=== PATIENT | male | born 1955 | race African-American/Black ===

== ENCOUNTER 2017-12-14 04:25 | Inpatient (IN) | payer OTHER ==
[2017-12-14 05:09] LABS: ADD MAN DIFF? NO
[2017-12-14 05:10] LABS: BASOPHIL # 0.1 10^3/ul (0.0-0.1); EOSINOPHILS # 0.8 10^3/ul (0.0-0.5); EOSINOPHILS % 9.9 % (0.0-7.0); HEMATOCRIT 32.4 % (42.0-52.0); LYMPHOCYTES # 1.2 10^3/ul (0.8-2.9); LYMPHOCYTES % 15.4 % (15.0-51.0); MEAN CORPUSCULAR HEMOGLOBIN 29.9 pg (29.0-33.0); MEAN CORPUSCULAR HGB CONC 30.9 g/dl (32.0-37.0); MEAN PLATELET VOLUME 9.7 fl (7.4-10.4); MONOCYTE # 0.5 10^3/ul (0.3-0.9); MONOCYTES % 6.6 % (0.0-11.0); NEUTROPHIL # 5.3 10^3/ul (1.6-7.5); NEUTROPHILS % 66.7 % (39.0-77.0); PLATELET COUNT 347 10^3/UL (140-415); RED BLOOD COUNT 3.34 10^6/ul (4.70-6.10); RED CELL DISTRIBUTION WIDTH 14.2 % (11.5-14.5)
[2017-12-14 05:29] LABS: INR 1.02; PROTIME 13.5 Sec (11.9-14.9); PT RATIO 1.1
[2017-12-14 05:30] LABS: PARTIAL THROMBOPLASTIN TIME 35.2 Sec (23.0-35.0)
[2017-12-14 05:38] LABS: ALBUMIN 3.8 g/dl (3.3-4.9); ALBUMIN/GLOBULIN RATIO 0.74; ALKALINE PHOSPHATASE 99 IU/L (42-121); ANION GAP 11 (8-16); ASPARTATE AMINO TRANSFERASE 38 IU/L (15-46); BILIRUBIN,INDIRECT 0.3 mg/dl (0-1.1); BILIRUBIN,TOTAL 0.3 mg/dl (0.2-1.3); BLOOD UREA NITROGEN 17 mg/dl (7-20); CALCIUM 9.9 mg/dl (8.4-10.2); CARBON DIOXIDE 29 mmol/L (21-31); CHLORIDE 107 mmol/L (97-110); CREATININE 1.84 mg/dl (0.61-1.24); GLUCOSE 99 mg/dl (70-220); POTASSIUM 4.5 mmol/L (3.5-5.1); SODIUM 142 mmol/L (135-144); TOTAL PROTEIN 8.9 g/dl (6.1-8.1)
[2017-12-14 05:49] LABS: TROPONIN-I < 0.012 ng/ml (0.000-0.120)
[2017-12-14 06:01] LABS: ALANINE AMINOTRANSFERASE 28 IU/L (13-69)
[2017-12-14] MEDS ORDERED: SEVOFLURANE 15 MIN ×2 (07:00→23:00)
[2017-12-14] MEDS: SOD CHLORIDE 0.9% 1,000 ML IV ×2 (09:21→13:06)
[2017-12-14] MEDS ORDERED: ONDANSETRON 4 MG INJ IV ×2 (09:30→13:00)
[2017-12-14] MEDS ORDERED: ACETAMINOPHEN 325 MG TAB PO ×2 (09:30→13:00)
[2017-12-14] MEDS: DOCUSATE SODIUM 100 MG CAP PO ×2 (13:00→21:00)
[2017-12-14] MEDS ORDERED: HYDROCODONE/APAP (5/325) TAB PO (13:00)
[2017-12-14] MEDS ORDERED: ZOLPIDEM 5 MG TAB PO (13:00)
[2017-12-14] MEDS: DEXAMETHASONE 4 MG/ML 1 ML INJ IV ×2 (13:02→17:12)
[2017-12-14] MEDS: DEXTROSE 5%-0.45% NACL 1,000 ML IV (13:08)
[2017-12-14] MEDS: LEVOTHYROXINE 112 MCG TAB PO (16:33)
[2017-12-14 16:34] LABS: AMPHETAMINE/METHAMPHETAMINE NEGATIVE (NEGATIVE); BARBITURATES NEGATIVE (NEGATIVE); BENZODIAZEPINES NEGATIVE (NEGATIVE); CANNABINOIDS NEGATIVE (NEGATIVE); COCAINE NEGATIVE (NEGATIVE); OPIATES NEGATIVE (NEGATIVE)
[2017-12-14] MEDS ORDERED: MIDAZOLAM 1 MG/ML 2 ML INJ (20:34)
[2017-12-14] MEDS ORDERED: PROPOFOL 20 ML (20:34)
[2017-12-14] MEDS ORDERED: LIDOCAINE 2% (SDV) 5 ML INJ (20:34)
[2017-12-14] MEDS: MIRTAZAPINE 15 MG TAB PO (21:00)
[2017-12-14] MEDS ORDERED: POVIDONE IODINE 10% 28.4 GM OINT (21:44)
[2017-12-14] MEDS ORDERED: ROCURONIUM 50 MG INJ ×2 (21:55→22:49)
[2017-12-14] MEDS ORDERED: SUCCINYLCHOLINE CHLORIDE 100 MG/5 ML SYG IV (21:55)
[2017-12-14] MEDS ORDERED: CEFAZOLIN 1 GM INJ (21:55)
[2017-12-14] MEDS ORDERED: FAMOTIDINE 20 MG INJ (22:50)
[2017-12-14] MEDS ORDERED: ONDANSETRON 4 MG INJ (22:50)
[2017-12-14] MEDS ORDERED: DEXAMETHASONE 4 MG/ML 1 ML INJ (22:50)
[2017-12-14] MEDS: GELATIN SIZE 100 SPONGE (22:56)
[2017-12-14] MEDS: BUPIVACAINE 0.5%/EPI (SDV) 30 ML INJ (22:56)
[2017-12-14] MEDS: POLYMYXIN/BACITRACIN 1L IRRIG (22:56)
[2017-12-14] MEDS: LIDOCAINE 0.5% (MDV) 50 ML INJ (22:56)
[2017-12-14] MEDS: THROMBIN 5000 UNIT VIAL ×2 (22:56)
[2017-12-14] MEDS ORDERED: PHENYLephrine (100 MCG/ML) 5ML SYG (23:06)
[2017-12-14] MEDS: MANNITOL 20% 250 ML IV ×2 (23:30)
[2017-12-15] MEDS ORDERED: SUGAMMADEX SODIUM 200 MG/2 ML VIAL IV (02:38)
[2017-12-15] MEDS: NEOMYC/POLYMYX/BACIT 30 GM OINT (03:09)
[2017-12-15] MEDS ORDERED: HYDROmorphONE 0.5 MG/0.5 ML SYG IV ×2 (04:00)
[2017-12-15] MEDS ORDERED: ONDANSETRON 4 MG INJ IV (04:00)
[2017-12-15] MEDS ORDERED: HYDROCODONE/APAP (5/325) TAB PO (04:00)
[2017-12-15] MEDS ORDERED: FENTAnyl 50 MCG/ML VIAL IV (04:00)
[2017-12-15] MEDS ORDERED: NALOXONE (0.4 MG/ML) INJ IV (04:00)
[2017-12-15] MEDS: CEFAZOLIN 1 GM/50 ML (PMX) 50 ML IVPB ×3 (04:53→20:17)
[2017-12-15 05:15] LABS: ADD MAN DIFF? NO
[2017-12-15 05:24] LABS: WHITE BLOOD COUNT 9.2 10^3/ul (4.8-10.8)
[2017-12-15 05:24] LABS: ABNORMAL IP MESSAGE 1; BASOPHILS % 0.2 % (0.0-2.0); HEMATOCRIT 25.8 % (42.0-52.0); LYMPHOCYTES # 0.6 10^3/ul (0.8-2.9); LYMPHOCYTES % 6.1 % (15.0-51.0); MEAN CORPUSCULAR VOLUME 96.6 fl (82.0-101.0); MEAN PLATELET VOLUME 9.3 fl (7.4-10.4); MONOCYTE # 0.2 10^3/ul (0.3-0.9); MONOCYTES % 2.4 % (0.0-11.0); NEUTROPHIL # 8.4 10^3/ul (1.6-7.5); NEUTROPHILS % 90.8 % (39.0-77.0); PLATELET COUNT 292 10^3/UL (140-415); POSITIVE DIFF @See below; RED BLOOD COUNT 2.67 10^6/ul (4.70-6.10); RED CELL DISTRIBUTION WIDTH 14.6 % (11.5-14.5)
[2017-12-15 05:47] LABS: BLOOD UREA NITROGEN 19 mg/dl (7-20); CALCIUM 9.2 mg/dl (8.4-10.2); CARBON DIOXIDE 21 mmol/L (21-31); CHLORIDE 105 mmol/L (97-110); CREATININE 1.76 mg/dl (0.61-1.24); GLUCOSE 149 mg/dl (70-220); MAGNESIUM 1.6 mg/dl (1.7-2.5); POTASSIUM 4.7 mmol/L (3.5-5.1); SODIUM 136 mmol/L (135-144)
[2017-12-15] MEDS: PANTOPRAZOLE 40 MG INJ IV (05:55)
[2017-12-15] MEDS: DEXAMETHASONE 4 MG/ML 1 ML INJ IV ×4 (05:55→18:16)
[2017-12-15] MEDS: NS + KCL 20 MEQ 1,000 ML IV ×2 (05:55→14:00)
[2017-12-15] MEDS: LEVOTHYROXINE 112 MCG TAB PO (06:00)
[2017-12-15] MEDS: MAGNESIUM SULFATE 2 GM/50 ML 50 ML IVPB (07:42)
[2017-12-15] MEDS: DOCUSATE SODIUM 100 MG CAP PO ×2 (08:09→20:18)
[2017-12-15] MEDS: NEOMYC/POLYMYX/BACIT 30 GM OINT TOP ×2 (08:10→20:50)
[2017-12-15] MEDS: AMLODIPINE 5 MG TAB PO (08:10)
[2017-12-15] MEDS ORDERED: HEPARIN 5,000 UNIT/0.5 ML VIAL SC (09:00)
[2017-12-15 09:27] LABS: ANION GAP 10 (5-13)
[2017-12-15] MEDS: ONDANSETRON 4 MG INJ IV (12:30)
[2017-12-15] MEDS: ACETAMINOPHEN 325 MG TAB PO (13:53)
[2017-12-15] MEDS: MIRTAZAPINE 15 MG TAB PO (20:18)
[2017-12-16] MEDS: DEXAMETHASONE 4 MG/ML 1 ML INJ IV ×2 (00:29→06:02)
[2017-12-16 05:26] LABS: ADD MAN DIFF? NO
[2017-12-16 05:31] LABS: WHITE BLOOD COUNT 21.8 10^3/ul (4.8-10.8)
[2017-12-16 05:31] LABS: ABNORMAL IP MESSAGE 1; BASOPHILS % 0.1 % (0.0-2.0); HEMATOCRIT 26.3 % (42.0-52.0); HEMOGLOBIN 8.4 g/dl (14.0-18.0); LYMPHOCYTES # 0.5 10^3/ul (0.8-2.9); LYMPHOCYTES % 2.1 % (15.0-51.0); MEAN CORPUSCULAR HEMOGLOBIN 30.7 pg (29.0-33.0); MEAN CORPUSCULAR HGB CONC 31.9 g/dl (32.0-37.0); MONOCYTES % 4.4 % (0.0-11.0); NEUTROPHIL # 20.2 10^3/ul (1.6-7.5); NEUTROPHILS % 92.6 % (39.0-77.0); PLATELET COUNT 304 10^3/UL (140-415); POSITIVE DIFF @See below; RED BLOOD COUNT 2.74 10^6/ul (4.70-6.10); RED CELL DISTRIBUTION WIDTH 14.4 % (11.5-14.5)
[2017-12-16] MEDS: LEVOTHYROXINE 112 MCG TAB PO (06:02)
[2017-12-16] MEDS: PANTOPRAZOLE 40 MG INJ IV (06:02)
[2017-12-16 06:05] LABS: ANION GAP 6 (5-13); BLOOD UREA NITROGEN 21 mg/dl (7-20); CALCIUM 9.5 mg/dl (8.4-10.2); CARBON DIOXIDE 28 mmol/L (21-31); CHLORIDE 106 mmol/L (97-110); CREATININE 1.88 mg/dl (0.61-1.24); GLUCOSE 120 mg/dl (70-220); POTASSIUM 4.9 mmol/L (3.5-5.1); SODIUM 140 mmol/L (135-144)
[2017-12-16] MEDS: AMLODIPINE 5 MG TAB PO (09:00)
[2017-12-16] MEDS: DOCUSATE SODIUM 100 MG CAP PO ×3 (10:09→21:00)
[2017-12-16] MEDS: NEOMYC/POLYMYX/BACIT 30 GM OINT TOP ×2 (10:09→20:58)
[2017-12-16] MEDS: DEXAMETHASONE 4 MG TAB PO ×2 (11:00→17:00)
[2017-12-16] MEDS: MIRTAZAPINE 15 MG TAB PO ×2 (20:58→21:00)
[2017-12-16] MEDS ORDERED: DEXAMETHASONE 4 MG/ML 1 ML INJ IV (21:00)
[2017-12-17] MEDS: DEXAMETHASONE 4 MG TAB PO ×5 (00:11→22:40)
[2017-12-17] MEDS: PANTOPRAZOLE 40 MG INJ IV (05:41)
[2017-12-17] MEDS: LEVOTHYROXINE 112 MCG TAB PO (05:41)
[2017-12-17 06:11] LABS: ADD MAN DIFF? NO
[2017-12-17 06:16] LABS: WHITE BLOOD COUNT 16.4 10^3/ul (4.8-10.8)
[2017-12-17 06:16] LABS: ABNORMAL IP MESSAGE 1; BASOPHILS % 0.1 % (0.0-2.0); HEMATOCRIT 24.5 % (42.0-52.0); HEMOGLOBIN 7.7 g/dl (14.0-18.0); LYMPHOCYTES # 0.5 10^3/ul (0.8-2.9); LYMPHOCYTES % 2.9 % (15.0-51.0); MEAN CORPUSCULAR HEMOGLOBIN 30.2 pg (29.0-33.0); MEAN CORPUSCULAR HGB CONC 31.4 g/dl (32.0-37.0); MEAN CORPUSCULAR VOLUME 96.1 fl (82.0-101.0); MEAN PLATELET VOLUME 10.4 fl (7.4-10.4); MONOCYTE # 0.3 10^3/ul (0.3-0.9); MONOCYTES % 1.9 % (0.0-11.0); NEUTROPHIL # 15.5 10^3/ul (1.6-7.5); NEUTROPHILS % 94.2 % (39.0-77.0); PLATELET COUNT 278 10^3/UL (140-415); POSITIVE DIFF @See below; RED BLOOD COUNT 2.55 10^6/ul (4.70-6.10); RED CELL DISTRIBUTION WIDTH 14.6 % (11.5-14.5)
[2017-12-17 06:47] LABS: MAGNESIUM 2.3 mg/dl (1.7-2.5)
[2017-12-17 06:47] LABS: ANION GAP 6 (5-13); BLOOD UREA NITROGEN 30 mg/dl (7-20); CALCIUM 9.6 mg/dl (8.4-10.2); CARBON DIOXIDE 29 mmol/L (21-31); CHLORIDE 105 mmol/L (97-110); GLUCOSE 119 mg/dl (70-220); POTASSIUM 4.8 mmol/L (3.5-5.1); SODIUM 140 mmol/L (135-144)
[2017-12-17 08:22] LABS: LYMPHOCYTES #M 0.3 10^3/ul (0.8-2.9); LYMPHOCYTES % (M) 2 % (15-51); PLATELET ESTIMATE NORMAL; POLYCHROMASIA 3+ (0-0); SEGMENTED NEUTROPHILS (M) % 98 % (39-77); SMUDGE%M 16 % (0-0)
[2017-12-17] MEDS: AMLODIPINE 5 MG TAB PO (08:32)
[2017-12-17] MEDS: DOCUSATE SODIUM 100 MG CAP PO ×2 (08:32→20:49)
[2017-12-17] MEDS: NEOMYC/POLYMYX/BACIT 30 GM OINT TOP ×2 (08:32→20:49)
[2017-12-17] MEDS: MIRTAZAPINE 15 MG TAB PO (20:49)
[2017-12-18] MEDS: PANTOPRAZOLE 40 MG INJ IV (06:35)
[2017-12-18] MEDS: DEXAMETHASONE 4 MG TAB PO ×4 (06:35→22:05)
[2017-12-18] MEDS: LEVOTHYROXINE 112 MCG TAB PO (08:33)
[2017-12-18] MEDS: NEOMYC/POLYMYX/BACIT 30 GM OINT TOP ×2 (08:34→21:00)
[2017-12-18] MEDS: AMLODIPINE 5 MG TAB PO (08:34)
[2017-12-18] MEDS: DOCUSATE SODIUM 100 MG CAP PO ×2 (08:34→21:00)
[2017-12-18] MEDS ORDERED: DEXAMETHASONE 4 MG/ML 1 ML INJ IV (09:00)
[2017-12-18 12:22] LABS: ADD MAN DIFF? NO
[2017-12-18 12:25] LABS: BASOPHILS % 0.1 % (0.0-2.0); HEMATOCRIT 29.5 % (42.0-52.0); HEMOGLOBIN 8.8 g/dl (14.0-18.0); LYMPHOCYTES # 0.8 10^3/ul (0.8-2.9); LYMPHOCYTES % 5.5 % (15.0-51.0); MEAN CORPUSCULAR HEMOGLOBIN 29.5 pg (29.0-33.0); MEAN CORPUSCULAR HGB CONC 29.8 g/dl (32.0-37.0); MEAN PLATELET VOLUME 9.6 fl (7.4-10.4); MONOCYTE # 0.6 10^3/ul (0.3-0.9); NEUTROPHIL # 13.1 10^3/ul (1.6-7.5); NEUTROPHILS % 89.9 % (39.0-77.0); PLATELET COUNT 347 10^3/UL (140-415); RED BLOOD COUNT 2.98 10^6/ul (4.70-6.10); RED CELL DISTRIBUTION WIDTH 14.4 % (11.5-14.5)
[2017-12-18 12:25] LABS: WHITE BLOOD COUNT 14.6 10^3/ul (4.8-10.8)
[2017-12-18 12:42] LABS: ALANINE AMINOTRANSFERASE 10 IU/L (13-69); ALBUMIN 3.1 g/dl (3.3-4.9); ALBUMIN/GLOBULIN RATIO 0.68; ALKALINE PHOSPHATASE 81 IU/L (42-121); ANION GAP 9 (5-13); ASPARTATE AMINO TRANSFERASE 22 IU/L (15-46); BILIRUBIN,INDIRECT 0.2 mg/dl (0-1.1); BILIRUBIN,TOTAL 0.2 mg/dl (0.2-1.3); BLOOD UREA NITROGEN 32 mg/dl (7-20); CARBON DIOXIDE 28 mmol/L (21-31); CHLORIDE 103 mmol/L (97-110); CREATININE 1.83 mg/dl (0.61-1.24); GLUCOSE 109 mg/dl (70-220); MAGNESIUM 2.2 mg/dl (1.7-2.5); PHOSPHORUS 3.8 mg/dl (2.5-4.9); POTASSIUM 4.4 mmol/L (3.5-5.1); SODIUM 140 mmol/L (135-144); TOTAL PROTEIN 7.6 g/dl (6.1-8.1)
[2017-12-18] MEDS: MIRTAZAPINE 15 MG TAB PO (21:00)
[2017-12-19] MEDS: LEVOTHYROXINE 112 MCG TAB PO (06:10)
[2017-12-19] MEDS: DEXAMETHASONE 4 MG TAB PO ×4 (06:10→22:10)
[2017-12-19] MEDS: PANTOPRAZOLE 40 MG INJ IV (06:10)
[2017-12-19] MEDS: NEOMYC/POLYMYX/BACIT 30 GM OINT TOP ×2 (08:09→21:21)
[2017-12-19] MEDS: AMLODIPINE 5 MG TAB PO (08:09)
[2017-12-19] MEDS: DOCUSATE SODIUM 100 MG CAP PO ×3 (08:09→21:20)
[2017-12-19] MEDS: MIRTAZAPINE 15 MG TAB PO (21:20)
[2017-12-20] MEDS: LEVOTHYROXINE 112 MCG TAB PO (05:41)
[2017-12-20] MEDS: DEXAMETHASONE 4 MG TAB PO ×4 (05:41→23:11)
[2017-12-20] MEDS: PANTOPRAZOLE 40 MG INJ IV (05:41)
[2017-12-20] MEDS: DOCUSATE SODIUM 100 MG CAP PO ×2 (08:59→21:01)
[2017-12-20] MEDS: NEOMYC/POLYMYX/BACIT 30 GM OINT TOP ×2 (09:00→21:01)
[2017-12-20] MEDS: AMLODIPINE 5 MG TAB PO (09:00)
[2017-12-20] MEDS: BACLOFEN 10 MG TAB PO ×2 (15:33→21:00)
[2017-12-20] MEDS: LORAZEPAM 2 MG INJ IV (16:57)
[2017-12-20] MEDS ORDERED: LEVETIRACETAM 500 MG TAB PO (17:00)
[2017-12-20] MEDS: LEVETIRACETAM 500 MG TAB PO ×2 (17:53→21:01)
[2017-12-20] MEDS: MIRTAZAPINE 15 MG TAB PO (21:00)
[2017-12-21] MEDS: PANTOPRAZOLE 40 MG INJ IV (06:26)
[2017-12-21] MEDS: DEXAMETHASONE 4 MG TAB PO ×4 (06:26→23:24)
[2017-12-21] MEDS: LEVOTHYROXINE 112 MCG TAB PO (07:10)
[2017-12-21] MEDS: DOCUSATE SODIUM 100 MG CAP PO ×2 (08:27→20:01)
[2017-12-21] MEDS: BACLOFEN 10 MG TAB PO ×2 (08:27→20:01)
[2017-12-21] MEDS: LEVETIRACETAM 500 MG TAB PO (08:27)
[2017-12-21] MEDS: NEOMYC/POLYMYX/BACIT 30 GM OINT TOP ×2 (08:28→20:05)
[2017-12-21] MEDS: AMLODIPINE 5 MG TAB PO (08:28)
[2017-12-21] MEDS: OXCARBAZEPINE 300 MG TAB PO ×2 (12:36→20:01)
[2017-12-21] MEDS: MIRTAZAPINE 15 MG TAB PO (20:02)
[2017-12-22] MEDS: PANTOPRAZOLE 40 MG INJ IV (05:20)
[2017-12-22] MEDS: DEXAMETHASONE 4 MG TAB PO ×2 (05:21→11:27)
[2017-12-22] MEDS: LEVOTHYROXINE 112 MCG TAB PO (05:21)
[2017-12-22] MEDS: DOCUSATE SODIUM 100 MG CAP PO (08:23)
[2017-12-22] MEDS: OXCARBAZEPINE 300 MG TAB PO (08:24)
[2017-12-22] MEDS: AMLODIPINE 5 MG TAB PO (08:25)
[2017-12-22] MEDS: BACLOFEN 10 MG TAB PO (08:26)
[2017-12-22] MEDS: NEOMYC/POLYMYX/BACIT 30 GM OINT TOP (08:32)
== END 2017-12-22 16:48 | DRG 26 ==
LOC: 6WM 12-16 05:04 → E/R 04:25 → 6WM 12-19 15:45 → ICU 09:14
PROC: 00B20ZX Excision of Dura Mater, Open Approach, Diagnostic (ICD-10-PCS; principal; 2017-12-14)
PROC: 8E09XBG Computer Assisted Procedure of Head and Neck Region, With Computerized Tomography (ICD-10-PCS; 2017-12-14)
PROC: 2W30XYZ Immobilization of Head using Other Device (ICD-10-PCS; 2017-12-14)
DX: C79.31 Secondary malignant neoplasm of brain (principal); I62.9 Nontraumatic intracranial hemorrhage, unspecified; C34.90 Malignant neoplasm of unspecified part of unspecified bronchus or lung; G83.11 Monoplegia of lower limb affecting right dominant side; Z90.5 Acquired absence of kidney; I12.9 Hypertensive chronic kidney disease with stage 1 through stage 4 chronic kidney disease, or unspecified chronic kidney disease; N18.9 Chronic kidney disease, unspecified; D63.1 Anemia in chronic kidney disease; E03.9 Hypothyroidism, unspecified; F32.9 Major depressive disorder, single episode, unspecified; D72.828 Other elevated white blood cell count; Z79.899 Other long term (current) drug therapy
CPT/HCPCS: 36415; 70450; 70551; 71045; 72125; 72128; 72131; 76775; 80048; 80053; 80307; 83735; 84100; 84443; 84484; 85025; 85610; 85730; 86850; 86900; 86901; 86920; 87081; 88307; 88341; 88342; 93005; 95819; 97110; 97116; 97162; 97530; 99291-25